=== PATIENT | female | born 1950 | race Caucasian/White ===

== ENCOUNTER 2020-08-21 12:18 | Emergency (ER) | payer MEDICARE, OTHER ==
[~2020-08-21] VITALS: Ht 149.9 cm; Wt 84.4 kg
[~2020-08-21 12:18] MED LIST: TOCO400; [UNRECOGNIZED DRUG - OTHER]
== END 2020-08-21 14:54 | disposition home or self-care (01) ==
LOC: ER 12:18
DX: I10 Essential (primary) hypertension (principal); E78.00 Pure hypercholesterolemia, unspecified; Z88.5 Allergy status to narcotic agent; Z88.2 Allergy status to sulfonamides
CPT/HCPCS: 93005; 93010; 99283-25

== ENCOUNTER 2022-10-16 11:23 | Emergency (ER) | payer MEDICARE, OTHER ==
[~2022-10-16] VITALS: Ht 149.9 cm; Wt 76.2 kg
[2022-10-16] MEDS ORDERED: NAPR550 PO (16:05)
[2022-10-16] MEDS ORDERED: ROSU5 PO (16:05)
[2022-10-16] MEDS ORDERED: LOSA50 PO (16:06)
[2022-10-16] MEDS ORDERED: TRAM50 PO (18:39)
== END 2022-10-16 18:50 | disposition home or self-care (01) ==
LOC: ER 11:23
DX: S39.011A Strain of muscle, fascia and tendon of abdomen, initial encounter (principal); X58.XXXA Exposure to other specified factors, initial encounter; I10 Essential (primary) hypertension
CPT/HCPCS: A9270